=== PATIENT | male | born 1975 ===

== ENCOUNTER 2019-04-22 20:32 | Emergency (ER) | payer SELFPAY ==
[2019-04-22 21:03] VITALS: BP 137/81
[2019-04-22] MEDS ORDERED: TETANUS,DIPH,PERTUSS(ACELL) VACCINE 0.5 ML SYRINGE IM ONE (22:02)
--- NOTE | 2019-04-22 22:02 | Emergency Department Report ---
- General Chief complaint: Skin/Abscess/Foreign Body Stated complaint: METAL IN FOREARM Time Seen by Provider: 04/22/19 21:59 Source: patient Mode of arrival: Ambulatory Limitations: No Limitations - History of Present Illness Initial comments: pt is a 43 yo male who presents to the ED with c/o having a piece of metal in his forearm since December. 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 he is unsure of his last tetanus immunization. he states that two weeks ago he got a scab to the right arm and has noticed some erythema around the area. he states that there was some drainage yesterday. he denies any drainage today. he denies any fever, n/v/d. he denies any PMHx. no allergies to meds. - Related Data Previous Rx's Medication Instructions Recorded Last Taken Type Sulfamethoxazole/Trimethoprim 1 each PO BID 7 Days #14 tablet 04/22/19 Unknown Rx [Bactrim DS TAB] Allergies Allergy/AdvReac Type Severity Reaction Status Date / Time No Known Allergies Allergy Verified 04/22/19 21:00 Abscess Boil HPI - HPI Chief Complaint: Skin/Abscess/Foreign Body Stated Complaint: METAL IN FOREARM Time Seen by Provider: 04/22/19 21:59 Home Medications: Previous Rx's Medication Instructions Recorded Last Taken Type Sulfamethoxazole/Trimethoprim 1 each PO BID 7 Days #14 tablet 04/22/19 Unknown Rx [Bactrim DS TAB] Allergies/Adverse Reactions: Allergies Allergy/AdvReac Type Severity Reaction Status Date / Time No Known Allergies Allergy Verified 04/22/19 21:00 ED Review of Systems ROS: Stated complaint: METAL IN FOREARM Other details as noted in HPI Comment: All other systems reviewed and negative ED Past Medical Hx - Social History Smoking Status: Current Every Day Smoker Substance Use Type: None - Medications Home Medications: Home Medications Medication Instructions Recorded Confirmed Last Taken Type Sulfamethoxazole/Trimethoprim 1 each PO BID 7 Days #14 tablet 04/22/19 Unknown Rx [Bactrim DS TAB] ED Physical Exam - General Limitations: No Limitations General appearance: alert, in no apparent distress - Head Head exam: Present: atraumatic, normocephalic - Eye Eye exam: Present: normal appearance - ENT ENT exam: Present: mucous membranes moist - Neurological Exam Neurological exam: Present: alert, oriented X3 - Psychiatric Psychiatric exam: Present: normal affect, normal mood - Skin Skin exam: Present: warm, dry, other (1 cm area of scabbing present to the right anterior forearm, small amount of surrounding erythema, no drainage, no fluctuance, no induration, neurovasucularly intact, no obvious foreign body visualized or palpable, no necrosis, no blistering ) ED Course Vital Signs 04/22/19 04/22/19 21:01 21:58 Temperature 98.6 F 98.6 F Pulse Rate 90 88 Respiratory 16 16 Rate Blood Pressure 137/81 137/81 O2 Sat by Pulse 97 98 Oximetry ED Medical Decision Making - Medical Decision Making pt is a 43 yo male who presents to the ED with c/o having a piece of metal in his forearm since December. 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 he is unsure of his last tetanus immunization. he states that two weeks ago he got a scab to the right arm and has noticed some erythema around the area. he states that there was some drainage yesterday. he denies any drainage today. he denies any fever, n/v/d. he denies any PMHx. no allergies to meds. vitals are normal. pt given tetanus immunization. on exam: 1 cm area of scabbing present to the right anterior forearm, small amount of surrounding erythema, no drainage, no fluctuance, no induration, neurovasucularly intact, no obvious foreign body visualized or palpable, no necrosis, no blistering. Examination consistent with mild cellulitis. No obvious foreign body visualized or palpable. Discussed with patient that creating an incision and looking for a very small piece of metal would cause more harm than good and could lead to damage to internal structures. discussed the importance of following up with a PCP. Patient given prescription for antibiotics. advised pt to please take medication as prescribed. may wash area with soap and water and immediately dry. no hot tub, no pool , no soaking in water. follow up with a primary care doctor in the next 3 days for reexamination of the area. return to the emergency room for any new or worsening symptoms including but not limited to worsening redness, worsening swelling, drainage, fever, vomiting, etc. Critical care attestation.: If time is entered above; I have spent that time in minutes in the direct care of this critically ill patient, excluding procedure time. ED Disposition Clinical Impression: Cellulitis Qualifiers: Site of cellulitis: extremity Site of cellulitis of extremity: upper extremity Laterality: right Qualified Code(s): L03.113 - Cellulitis of right upper limb Disposition: TO HOME OR SELFCARE Is pt being admited?: No Does the pt Need Aspirin: No Condition: Stable Instructions: Cellulitis (ED), Diphtheria Tetanus and Pertussis Vaccination (ED) Additional Instructions: please take medication as prescribed. may wash area with soap and water and immediately dry. no hot tub, no pool , no soaking in water. follow up with a primary care doctor in the next 3 days for reexamination of the area. return to the emergency room for any new or worsening symptoms including but not limited to worsening redness, worsening swelling, drainage, fever, vomiting, etc. por favor tome la medicacin segn lo prescrito. Puede laura el kate con agua y jabn e inmediatamente secar. sin baera de hidromasaje, sin piscina, sin remojo en agua. wilfred un seguimiento con un mdico de atencin primaria en los prximos 3 lyon para volver a examinar el kate. Regrese a la lisa de emergencias por cualquier sntoma nuevo o que empeore, que incluye, entre otros, empeoramiento del enrojecimiento, empeoramiento de la hinchazn, drenaje, fiebre, vmitos, etc. Prescriptions: Sulfamethoxazole/Trimethoprim [Bactrim DS TAB] 1 each PO BID 7 Days #14 tablet Referrals: PATRICE COLLAZO MD [Staff Physician] - 3-5 Days [facility] [Outside] - 3-5 Days [facility] [Outside] - 3-5 Days Time of Disposition: 22:05 Print Language: NIGERIEN
== END 2019-04-22 22:43 | disposition home or self-care (01) ==
LOC: ED 20:32
DX: L03.113 Cellulitis of right upper limb (principal); F17.200 Nicotine dependence, unspecified, uncomplicated
CPT/HCPCS: 90471; 90715; 99281

== ENCOUNTER 2021-11-18 16:32 | Emergency (ER) | payer SELFPAY ==
[2021-11-18 17:37] VITALS: BP 141/86
== END 2021-11-19 17:25 ==
LOC: ED 16:32
DX: R05.9 Cough, unspecified (principal); Z53.21 Procedure and treatment not carried out due to patient leaving prior to being seen by health care provider